=== PATIENT | male | born 1970 | race Caucasian/White ===

== ENCOUNTER → 2023-03-08 08:50 | Outpatient (BNVA) | payer OTHER, SELFPAY | PROVIDERS: Visit Provider Physician Assistant Medical | DX: S87.81XA Crushing injury of right lower leg, initial encounter (principal); W23.2XXA Caught, crushed, jammed or pinched between a moving and stationary object, initial encounter | CPT/HCPCS: 73590; 99203 ==

== ENCOUNTER → 2023-03-10 13:19 | Outpatient (BNVA) | payer OTHER, SELFPAY | PROVIDERS: Visit Provider Physician Assistant | DX: S80.811A Abrasion, right lower leg, initial encounter (principal); W23.2XXA Caught, crushed, jammed or pinched between a moving and stationary object, initial encounter | CPT/HCPCS: 99213 ==

== ENCOUNTER → 2023-03-14 14:33 | Outpatient (BNVA) | payer OTHER, SELFPAY | PROVIDERS: Visit Provider Physician Assistant Medical | DX: S87.81XA Crushing injury of right lower leg, initial encounter (principal); W23.2XXA Caught, crushed, jammed or pinched between a moving and stationary object, initial encounter | CPT/HCPCS: 99213 ==

== ENCOUNTER → 2023-03-22 09:40 | Outpatient (BNVA) | payer OTHER, SELFPAY | PROVIDERS: Visit Provider Physician Assistant | DX: S87.81XD Crushing injury of right lower leg, subsequent encounter (principal); W23.2XXD Caught, crushed, jammed or pinched between a moving and stationary object, subsequent encounter | CPT/HCPCS: 99213 ==